=== PATIENT | female | born 1965 | race Caucasian/White ===

== ENCOUNTER → 2017-07-01 | Outpatient (CLI) | payer OTHER ==
[~2017-07-01] MED LIST: ASPIRIN 81MG TA81 MG PO; HYDROCHLOROTH12.5 M1 PO; MELOXICAM15 MG PO; METFORMIN500 MG PO; PRAVASTATIN 20M20 MG PO
[2017-07-01 16:13] LABS: BUN 13 mg/dL (7-18)
[2017-07-01 16:48] LABS: GFR (ESTIMATED) 59 ML/MIN (59-)
== END ==
LOC: CARL-LAB 08:12
PROVIDERS: Internal Medicine Adolescent Medicine
DX: E78.5 Hyperlipidemia, unspecified (principal); E11.69 Type 2 diabetes mellitus with other specified complication; I10 Essential (primary) hypertension